=== PATIENT | female | born 1980 | race Caucasian/White ===

== ENCOUNTER → 2023-12-20 10:08 | Outpatient (REF) | payer OTHER, SELFPAY | LOC: RAD 10:08 | PROVIDERS: ATTENDING PHYSICIAN Student in an Organized Health Care Education/Training Program; FAMILY PHYSICIAN Family Medicine | DX: N93.9 Abnormal uterine and vaginal bleeding, unspecified (principal) | CPT/HCPCS: 76830; 76856 ==

== ENCOUNTER → 2024-03-06 18:51 | Outpatient (REF) | payer OTHER, SELFPAY | LOC: PAVMRI 18:51 | PROVIDERS: ATTENDING PHYSICIAN Student in an Organized Health Care Education/Training Program | DX: N93.9 Abnormal uterine and vaginal bleeding, unspecified (principal) | CPT/HCPCS: 72197; A9575 ==

== ENCOUNTER → 2024-05-21 10:14 | Outpatient (REF) | payer OTHER, SELFPAY | LOC: WDC 10:14 | PROVIDERS: ATTENDING PHYSICIAN Obstetrics & Gynecology; FAMILY PHYSICIAN Family Medicine | DX: R92.8 Other abnormal and inconclusive findings on diagnostic imaging of breast (principal) | CPT/HCPCS: 76642; 77061; 77065 ==

== ENCOUNTER → 2024-12-25 09:49 | Outpatient (REF) | payer OTHER, SELFPAY | LOC: WDC 09:49 | PROVIDERS: ATTENDING PHYSICIAN Obstetrics & Gynecology | DX: N63.20 Unspecified lump in the left breast, unspecified quadrant (principal); N63.23 Unspecified lump in the left breast, lower outer quadrant; N63.21 Unspecified lump in the left breast, upper outer quadrant | CPT/HCPCS: 76642; 77061; 77065 ==